=== PATIENT | female | born 1945 | race Caucasian/White ===

== ENCOUNTER 2019-01-28 13:44 | Inpatient (IN) | payer MEDICARE ==
[2019-01-28] MEDS ORDERED: Albuterol/Ipratropium 3.0-0.5 MG/3 ML Neb Soln NEB ONE ×2 (14:00→15:47)
[2019-01-28 15:05] LABS: BLOOD UREA NITROGEN,BUN 16 mg/dL (7.0-18.0); CARBON DIOXIDE,CO2 27.1 mmol/L (21.0-32.0); CHLORIDE,CL 103 mmol/L (98-107); GLUCOSE RANDOM 155 mg/dL (74-106); POTASSIUM,K 4.7 mmol/L (3.5-5.1); SODIUM,NA 137 mmol/L (136-145)
--- NOTE | 2019-01-28 15:14 | CR ---
Chest: AP view of the chest was obtained. Comparison: No prior chest x-rays available. Poor inspiratory effort is noted. Heart size at the upper limits normal. Diffuse increased lung markings are noted. More focal density is seen within the right lung base. Right hemidiaphragm is elevated. Previous right shoulder surgery is noted. Impression: 1. Diffuse increased lung markings. Without previous studies uncertain if this is acute or represents diffuse bronchitis or pulmonary vascular congestion. 2. Elevated right hemidiaphragm. 3. Slight focal density above the right hemidiaphragm may represent small area of pneumonia or atelectasis. Diagnostic code #3 MTDD
[2019-01-28] MEDS ORDERED: Ondansetron 4 MG/2 ML SDV IVPUSH ONE (15:47)
--- NOTE | 2019-01-28 16:11 | EDM.PDOC ---
ED HPI GENERAL MEDICAL PROBLEM - General Chief Complaint: Abdominal Pain Stated Complaint: STOMACH Time Seen by Provider: 01/28/19 13:47 Source of Information: Reports: Patient, EMS History Limitations: Reports: No Limitations - History of Present Illness INITIAL COMMENTS - FREE TEXT/NARRATIVE: Presents via EMS reporting "just not feeling right". She reports feeling short of breath above her baseline, blurry vision, nausea but no vomiting, epigastric pain above her baseline. She has COPD and is followed by Dr. Tony, Pulmonology in [place], on home O2 at 2 L/m. She states that she saw Dr. Tony in December who kept her on her current treatment regimen however, she did mention that the patient should see her primary provider about some swelling in the ankles and excess fluid. She has not had swollen ankles of late. Her blood sugar at home was 85 and 235 by EMS. She has a hiatal hernia and always has some upper abdominal pain but today she has nausea as well. abd pain Pain Score (Numeric/FACES): 7 - Related Data Allergies Allergy/AdvReac Type Severity Reaction Status Date / Time adhesive tape Allergy Rash Verified 01/28/19 13:48 hydrocodone Allergy Vomiting Verified 01/28/19 13:48 oxycodone Allergy Vomiting Verified 01/28/19 13:48 prochlorperazine Allergy Vomiting Verified 01/28/19 13:48 [From Compazine] Home Meds: Home Meds Celecoxib 200 mg PO 01/28/19 [History] Dicyclomine [Bentyl] 10 mg PO 01/28/19 [History] Fluticasone Furoate [Arnuity Ellipta] 2 inh NASBOTH 01/28/19 [History] Insulin Degludec [Tresiba] 200 unit SQ 01/28/19 [History] Insuln Asp Prot/Insulin Aspart [NovoLOG Mix 70-30] 22 units SUBCUT 01/28/19 [ History] Latanoprost/Pf [Latanoprost 0.005% Eye Drop] 1 drop EYEBOTH 01/28/19 [History] Levothyroxine 175 mcg PO 01/28/19 [History] Losartan [Cozaar] 50 mg PO 01/28/19 [History] Meloxicam 15 mg PO 01/28/19 [History] Metoprolol Succinate 100 mg PO 01/28/19 [History] Nortriptyline 10 mg PO 01/28/19 [History] Omeprazole 40 mg PO 01/28/19 [History] amLODIPine [Norvasc] 10 mg PO 01/28/19 [History] atorvaSTATin [Lipitor] 20 mg PO 01/28/19 [History] Past Medical History HEENT History: Reports: Impaired Vision Respiratory History: Reports: Other (See Below) Other Respiratory History: PT reports only having use of half of her diaphragm due to a viral infection Gastrointestinal History: Reports: Irritable Bowel Syndrome Social & Family History - Family History Family Medical History: Noncontributory - Tobacco Use Smoking Status *Q: Never Smoker - Recreational Drug Use Recreational Drug Use: No ED ROS GENERAL - Review of Systems Review Of Systems: ROS reveals no pertinent complaints other than HPI. ED EXAM, GI/ABD - Physical Exam Exam: See Below Exam Limited By: No Limitations General Appearance: Alert, Mild Distress (Due to shortness of breath) Ears: Normal External Exam Nose: Normal Inspection Throat/Mouth: Normal Inspection Head: Atraumatic, Normocephalic Neck: Normal Inspection Respiratory/Chest: No Accessory Muscle Use, Rales (In bases), Other (Speaking in complete sentences) Cardiovascular: Normal Peripheral Pulses, Regular Rate, Rhythm, No Murmur GI/Abdominal Exam: Normal Bowel Sounds, Soft, No Distention, Other (Tenderness in the epigastric area) Back Exam: Normal Inspection Extremities: Normal Inspection, Normal Range of Motion, No Pedal Edema Neurological: Alert, Oriented Psychiatric: Normal Affect, Normal Mood Skin Exam: Warm, Dry, Intact, Normal Color, No Rash Lymphatic: No Adenopathy Course - Vital Signs Last Recorded V/S: Last Vital Signs Temp 36.6 C 01/28/19 15:48 Pulse 58 L 01/28/19 15:48 Resp 32 H 01/28/19 15:48 BP 105/60 01/28/19 15:48 Pulse Ox 87 L 01/28/19 15:48 - Orders/Labs/Meds Orders: Active Orders 24 hr Category Date Time Status Patient Status [ADT] Stat ADT 01/28/19 16:01 Ordered EKG 12 Lead [EKG Documentation Completion] [RC] STAT Care 01/28/19 14:05 Active RT Aerosol Therapy [RC] ASDIRECTED Care 01/28/19 14:01 Active RT Aerosol Therapy [RC] ASDIRECTED Care 01/28/19 15:47 Active Labs: Laboratory Tests 01/28/19 01/28/19 01/28/19 Range/Units 14:27 14:27 14:27 WBC 12.64 H (4.0-11.0) K/uL RBC 4.91 (4.30-5.90) M/uL Hgb 10.7 L (12.0-16.0) g/dL Hct 36.4 (36.0-46.0) % MCV 74.1 L (80.0-98.0) fL MCH 21.8 L (27.0-32.0) pg MCHC 29.4 L (31.0-37.0) g/dL RDW Std Deviation 47.3 (28.0-62.0) fl RDW Coeff of Brisa 18 H (11.0-15.0) % Plt Count 274 (150-400) K/uL MPV 9.60 (7.40-12.00) fL Neut % (Auto) 78.7 (48.0-80.0) % Lymph % (Auto) 12.3 L (16.0-40.0) % [place] % (Auto) 7.7 (0.0-15.0) % Eos % (Auto) 1.1 (0.0-7.0) % Baso % (Auto) 0.2 (0.0-1.5) % Neut # (Auto) 10.0 H (1.4-5.7) K/uL Lymph # (Auto) 1.6 (0.6-2.4) K/uL [place] # (Auto) 1.0 H (0.0-0.8) K/uL Eos # (Auto) 0.1 (0.0-0.7) K/uL Baso # (Auto) 0.0 (0.0-0.1) K/uL Nucleated RBC % 0.0 /100WBC Nucleated RBCs # 0 K/uL Sodium 137 (136-145) mmol/L Potassium 4.7 (3.5-5.1) mmol/L Chloride 103 (98-107) mmol/L Carbon Dioxide 27.1 (21.0-32.0) mmol/L BUN 16 (7.0-18.0) mg/dL Creatinine 1.3 H (0.6-1.0) mg/dL Est Cr Clr Drug Dosing 29.95 mL/min Estimated GFR (MDRD) 40.4 ml/min Glucose 155 H (74-106) mg/dL Calcium 8.8 (8.5-10.1) mg/dL Total Bilirubin 1.8 H (0.2-1.0) mg/dL AST 19 (15-37) IU/L ALT 14 (14-63) IU/L Alkaline Phosphatase 108 (46-116) U/L Troponin I < 0.050 (0.000-0.056) ng/mL B-Natriuretic Peptide 408 H (<100) PG/ML Total Protein 7.1 (6.4-8.2) g/dL Albumin 3.2 L (3.4-5.0) g/dL Globulin 3.9 (2.6-4.0) g/dL Albumin/Globulin Ratio 0.8 L (0.9-1.6) Meds: Medications Discontinued Medications Generic Name Dose Route Start Last Admin Trade Name Freq PRN Reason Stop Dose Admin Albuterol/Ipratropium 3 ml 01/28/19 14:00 01/28/19 14:08 Duoneb 3.0-0.5 Mg/3 Ml NEB 01/28/19 14:01 3 ml ONETIME ONE Administration Albuterol/Ipratropium 3 ml 01/28/19 15:47 01/28/19 15:52 Duoneb 3.0-0.5 Mg/3 Ml NEB 01/28/19 15:48 3 ml ONETIME ONE Administration Ondansetron HCl 4 mg 01/28/19 15:47 01/28/19 15:56 Zofran IVPUSH 01/28/19 15:48 4 mg ONETIME ONE Administration - Re-Assessments/Exams Free Text/Narrative Re-Assessment/Exam: 01/28/19 16:13 Off-and-on nausea in the emergency room treated with Zofran 2 (once by EMS). Complained of shortness of breath with desaturations down into the 70s. Treated with duo nebs and oxygen by nonrebreather mask. Brought saturations up to the upper 80s. Discussion with Dr. Khai Chahal, hospitalist regarding admission. Same will admit patient. Departure - Departure Time of Disposition: 16:15 Disposition: Admitted As Inpatient 68 Condition: Fair Clinical Impression: Hiatal hernia Pneumonia Qualifiers: Pneumonia type: due to unspecified organism Laterality: right Lung location: lower lobe of lung Qualified Code(s): J18.1 - Lobar pneumonia, unspecified organism - Discharge Information Referrals: PCP,Unknown [Primary Care Provider] - - My Orders Last 24 Hours: My Active Orders 01/28/19 14:01 RT Aerosol Therapy [RC] ASDIRECTED 01/28/19 14:05 EKG 12 Lead [EKG Documentation Completion] [RC] STAT 01/28/19 15:47 RT Aerosol Therapy [RC] ASDIRECTED 01/28/19 16:01 Patient Status [ADT] Stat - Assessment/Plan Last 24 Hours: My Active Orders 01/28/19 14:01 RT Aerosol Therapy [RC] ASDIRECTED 01/28/19 14:05 EKG 12 Lead [EKG Documentation Completion] [RC] STAT 01/28/19 15:47 RT Aerosol Therapy [RC] ASDIRECTED 01/28/19 16:01 Patient Status [ADT] Stat
[2019-01-28] MEDS ORDERED: Sodium Chloride 0.9% 1,000 ML IV SCH (16:15)
[2019-01-28] MEDS ORDERED: Albuterol/Ipratropium 3.0-0.5 MG/3 ML Neb Soln NEB PRN (16:48)
[2019-01-28] MEDS ORDERED: Insulin Aspart 100 Units/ML 3 ML Pen SUBCUT SCH (17:00)
[2019-01-28] MEDS ORDERED: Azithromycin 500 MG in Sodium Chloride 0.9% 250 ML IV SCH (17:00)
[2019-01-28] MEDS ORDERED: cefTRIAXone 1 GM in Sodium Chloride 0.9% 50 ML IV SCH (17:00)
[2019-01-28] MEDS ORDERED: methylPREDNISolone Sodium Succinate 125 MG/2 ML SDV IVPUSH SCH (17:00)
--- NOTE | 2019-01-28 17:02 | PCM.HP.2 ---
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 She reports two day history of fevers, and myalgias. She reports increasing shortness of breath, wheezing and productive cough. She was noted to be satting in 70s on presentation. She was given nebulizers and 14 L of O2 via face mask in the ED with some improvement in her dyspnea. She is now satting at 88-90. CXR reported diffuse increased lung markings. abd pain Pain Score (Numeric/FACES): 7 - Related Data Allergies/Adverse Reactions: Allergies Allergy/AdvReac Type Severity Reaction Status Date / Time adhesive tape Allergy Rash Verified 01/28/19 13:48 hydrocodone Allergy Vomiting Verified 01/28/19 13:48 oxycodone Allergy Vomiting Verified 01/28/19 13:48 prochlorperazine Allergy Vomiting Verified 01/28/19 13:48 [From Compazine] Home Medications: Home Meds Celecoxib 200 mg PO 01/28/19 [History] Dicyclomine [Bentyl] 10 mg PO 01/28/19 [History] Fluticasone Furoate [Arnuity Ellipta] 2 inh NASBOTH 01/28/19 [History] Insulin Degludec [Tresiba] 200 unit SQ 01/28/19 [History] Insuln Asp Prot/Insulin Aspart [NovoLOG Mix 70-30] 22 units SUBCUT 01/28/19 [ History] Latanoprost/Pf [Latanoprost 0.005% Eye Drop] 1 drop EYEBOTH 01/28/19 [History] Levothyroxine 175 mcg PO 01/28/19 [History] Losartan [Cozaar] 50 mg PO 01/28/19 [History] Meloxicam 15 mg PO 01/28/19 [History] Metoprolol Succinate 100 mg PO 01/28/19 [History] Nortriptyline 10 mg PO 01/28/19 [History] Omeprazole 40 mg PO 01/28/19 [History] amLODIPine [Norvasc] 10 mg PO 01/28/19 [History] atorvaSTATin [Lipitor] 20 mg PO 01/28/19 [History] Past Medical History HEENT History: Reports: Impaired Vision Respiratory History: Reports: Other (See Below) Other Respiratory History: PT reports only having use of half of her diaphragm due to a viral infection Gastrointestinal History: Reports: Irritable Bowel Syndrome Social & Family History - Family History Family Medical History: Noncontributory - Tobacco Use Smoking Status *Q: Never Smoker - Recreational Drug Use Recreational Drug Use: No H&P Review of Systems - Review of Systems: Review Of Systems: ROS reveals no pertinent complaints other than HPI. Exam - Exam Exam: See Below - Vital Signs Vital Signs: Last Vital Signs Temp 36.6 C 01/28/19 15:48 Pulse 58 L 01/28/19 15:48 Resp 32 H 01/28/19 15:48 BP 105/60 01/28/19 15:48 Pulse Ox 87 L 01/28/19 15:48 Weight: 86.183 kg - Exam General: Alert, Oriented HEENT: Posterior Pharynx Clear Neck: No: JVD Lungs: Rhonchi, Wheezing Cardiovascular: Regular Rate, Regular Rhythm GI/Abdominal Exam: Normal Bowel Sounds, Soft, Non-Tender, No Distention Extremities: Non-Tender, No Pedal Edema Skin: Warm, Dry, Intact - Patient Data Lab Results Last 24 hrs: Laboratory Results - last 24 hr 01/28/19 01/28/19 01/28/19 Range/Units 14:27 14:27 14:27 WBC 12.64 H (4.0-11.0) K/uL RBC 4.91 (4.30-5.90) M/uL Hgb 10.7 L (12.0-16.0) g/dL Hct 36.4 (36.0-46.0) % MCV 74.1 L (80.0-98.0) fL MCH 21.8 L (27.0-32.0) pg MCHC 29.4 L (31.0-37.0) g/dL RDW Std Deviation 47.3 (28.0-62.0) fl RDW Coeff of Brisa 18 H (11.0-15.0) % Plt Count 274 (150-400) K/uL MPV 9.60 (7.40-12.00) fL Neut % (Auto) 78.7 (48.0-80.0) % Lymph % (Auto) 12.3 L (16.0-40.0) % [place] % (Auto) 7.7 (0.0-15.0) % Eos % (Auto) 1.1 (0.0-7.0) % Baso % (Auto) 0.2 (0.0-1.5) % Neut # (Auto) 10.0 H (1.4-5.7) K/uL Lymph # (Auto) 1.6 (0.6-2.4) K/uL [place] # (Auto) 1.0 H (0.0-0.8) K/uL Eos # (Auto) 0.1 (0.0-0.7) K/uL Baso # (Auto) 0.0 (0.0-0.1) K/uL Nucleated RBC % 0.0 /100WBC Nucleated RBCs # 0 K/uL Sodium 137 (136-145) mmol/L Potassium 4.7 (3.5-5.1) mmol/L Chloride 103 (98-107) mmol/L Carbon Dioxide 27.1 (21.0-32.0) mmol/L BUN 16 (7.0-18.0) mg/dL Creatinine 1.3 H (0.6-1.0) mg/dL Est Cr Clr Drug Dosing 29.95 mL/min Estimated GFR (MDRD) 40.4 ml/min Glucose 155 H (74-106) mg/dL Calcium 8.8 (8.5-10.1) mg/dL Total Bilirubin 1.8 H (0.2-1.0) mg/dL AST 19 (15-37) IU/L ALT 14 (14-63) IU/L Alkaline Phosphatase 108 (46-116) U/L Troponin I < 0.050 (0.000-0.056) ng/mL B-Natriuretic Peptide 408 H (<100) PG/ML Total Protein 7.1 (6.4-8.2) g/dL Albumin 3.2 L (3.4-5.0) g/dL Globulin 3.9 (2.6-4.0) g/dL Albumin/Globulin Ratio 0.8 L (0.9-1.6) Result Diagrams: 01/28/19 14:27 01/28/19 14:27 Problem List Initiated/Reviewed/Updated: Yes Orders Last 24hrs: Active Orders 24 hr Category Date Time Status Patient Status [ADT] Stat ADT 01/28/19 16:01 Active EKG 12 Lead [EKG Documentation Completion] [RC] STAT Care 01/28/19 14:05 Active RT Aerosol Therapy [RC] ASDIRECTED Care 01/28/19 14:01 Active RT Aerosol Therapy [RC] ASDIRECTED Care 01/28/19 15:47 Active RT Aerosol Therapy [RC] ASDIRECTED Care 01/28/19 16:49 Ordered CULTURE BLOOD [BC] Stat Lab 01/28/19 16:51 Ordered CULTURE BLOOD [BC] Stat Lab 01/28/19 16:51 Ordered Albuterol/Ipratropium [DuoNeb 3.0-0.5 MG/3 ML] Med 01/28/19 16:48 Ordered 3 ml NEB Q2H PRN Albuterol/Ipratropium [DuoNeb 3.0-0.5 MG/3 ML] Med 01/28/19 18:00 Ordered 3 ml NEB Q6HRRT Azithromycin [Zithromax] 500 mg Med 01/28/19 17:00 Ordered Sodium Chloride 0.9% [Normal Saline (AdvBag)] 250 ml IV Q24H Insulin Aspart [NovoLOG] Med 01/28/19 17:00 Ordered See Protocol SUBCUT TIDAC Insulin Glarg,Human.Rec.Analog [LantUS Solostar] Med 01/28/19 21:00 Ordered 80 units SUBCUT BEDTIME Levothyroxine Med 01/28/19 17:00 Unverified DOSE UNIT RTE FREQ Losartan [Cozaar] Med 01/28/19 17:00 Unverified DOSE UNIT RTE FREQ Metoprolol Succinate [Toprol XL] Med 01/28/19 17:00 Unverified DOSE UNIT RTE FREQ Nortriptyline Med 01/28/19 17:00 Unverified DOSE UNIT RTE FREQ Omeprazole [Omeprazole] Med 01/28/19 17:00 Unverified DOSE UNIT RTE FREQ amLODIPine [Norvasc] Med 01/28/19 17:00 Unverified DOSE UNIT RTE FREQ cefTRIAXone [Rocephin] 1 gm Med 01/28/19 17:00 Ordered Sodium Chloride 0.9% [Normal Saline] 50 ml IV Q24H methylPREDNISolone Sod Succ [Solu-MEDROL] Med 01/28/19 17:00 Ordered 125 mg IVPUSH DAILY Blood Culture x2 Reflex Set [OM.PC] Stat Oth 01/28/19 16:51 Ordered Medication Orders Albuterol/Ipratropium (Duoneb 3.0-0.5 Mg/3 Ml) 3 ml NEB Q2H PRN PRN Reason: Wheezing Albuterol/Ipratropium (Duoneb 3.0-0.5 Mg/3 Ml) 3 ml NEB Q6HRRT CASSIDY Azithromycin 500 mg/ Sodium (Chloride) 250 mls @ 250 mls/hr IV Q24H CASSIDY Ceftriaxone Sodium 1 gm/ (Sodium Chloride) 50 mls @ 100 mls/hr IV Q24H CASSIDY Insulin Aspart (Novolog) 0 unit SUBCUT TIDAC CASSIDY; Protocol Insulin Glargine (Lantus Solostar) 80 units SUBCUT BEDTIME CASSIDY Methylprednisolone Sodium Succinate (Solu-Medrol) 125 mg IVPUSH DAILY CASSIDY Assessment/Plan Comment:: 73 yo female admitted for acute hypoxic respiratory failure from pneumonia vs acute bronchitis. We will tread with Rocephin, azithromycin, duonebs and solumedrol. We will resume her long acting insulin for which she takes 80 units at night with sliding scale insulin.
[2019-01-28] MEDS ORDERED: Ondansetron 4 MG/2 ML SDV IVPUSH PRN (17:23)
[2019-01-28] MEDS ORDERED: Acetaminophen 325 MG Tab PO PRN (17:23)
[2019-01-28] MEDS ORDERED: Heparin Sodium 5,000 Units/ML Vial SUBCUT SCH (17:30)
[2019-01-28] MEDS ORDERED: Albuterol/Ipratropium 3.0-0.5 MG/3 ML Neb Soln NEB SCH (18:00)
--- NOTE | 2019-01-28 19:45 | PN ---
THC Physician - Brief Progress [id number]/15/2019 19:31[facility] Munir Stack, CELINE - ALEXANDERN (HUANN) - MWN Efraín MELVIN of Service 01/28/2019 19:31HPI/Events of Note eICU Admission [id number] admitted for acute on chronic hypoxemic respiratory failure attributed to pneumonia. History obtained primarily from review of EMR.PMH: AISHA, DM, HTN, paralyzed R Diaphragm, o n 2LNC at baseline HPI: Patient had presented with fevers/chills/wheezing and cough. On simple facema sk saturating in upper 80s. Work up revealed leukocytosis, IDA, CXR reveals diffuse lung markings. Oleg osman was admitted to the ICU for further management.Camera exam: Laying in bed, on face mask, satura tions with unreliable waveforms. Vitals monitor reviewed, bradycardic, although unclear if rhythm cap tured by telemetryVitals: reviewedLabs: reviewedRadiology: reviewedMeds: reviewedeICU Impression and Recommendations:Sepsis, suspect secondary to pneumoniaIf not already done, recommend lactate, urinaly sisIf elevated, trend lactate until <2Antibiotics per primary service, agree with CAP coverageInfluen za testingBradycardia per telemetryEKG statShould EKG confirm bradycardia:- keep atropine at bedside, administer should patient become unstable- Recommend cardiology consult for comment- If not already ordered, recommend TSH, FT4, TTE, troponin, BNP, Magnesium, Phosphorus, ionized calcium- Continuous t elemetry monitoringShould patient develop symptomatic/unstable bradycardia:- Administer atropine 0.5m g IV push every 3-5 min up to 3mg total- Please place pacer pads on patient for possible need of pierson scutaneous pacing- Recommend cardiology stat evaluation for transvenous pacemaker placement- Initiati on of epinephrine or dopamine dripAcute kidney injury, etiology suspected to be:Strict I/OTrend creat inineAvoid nephrotoxic agentsAcute Hypoxemic Respiratory Failure, secondary to pneumoniaWould suggest a very low threshold for intubation given pre-existing oxygen requirement prior to admission. Can co nsider BPAP therapy, however this must be taken in conjunction with patient's mental status, work of breathing, and sputum production. If oxygen status worsens or saturations are unable to be maintained >92% with non-invasive measures, recommend immediate intubation.ABG statShould patient be intubated overnight, Consider pursuit of a lung protective ventilation strategy. [place] body weight noted to be 52kg, as such I recommend an initial tidal volume of 325 mL if pursuing a volume control ventilation approach. Recommend addressing minute ventilation requirements by increasing respiratory rate.ABG and CXR following intubation.Titration of FiO2 to maintain O2 saturation >92%Recommend implementation of ventilator quality bundle, with daily sedation vacation, spontaneous breathing trials, DVT and GI pr ophylaxis, and maintaining head of bed at 30 degreesHypothyroidismIf not already done, recommend TSH and ER6Pwysorpy levothyroxineDiabetes MellitusHyperglycemia- Glycemic management per primary service, we are available to assist if desired- Recommend targeted glucose goal of <180, and discontinuation of oral anti-hyperglycemics, with initiation of insulin- consider A1c if not obtained in past 6 month sDVT and GI prophylaxis as appropriate.We are available to assist in further clarification, or implem entation of any of the above recommendations if desired by primary service.Thank you for allowing us to participate in the care of this patient.The above note transcribed via dictation software. Please excuse any errors.Interventions Major-Respiratory failure - evaluation and management, Sepsis - evalu ation and management
[2019-01-28] MEDS ORDERED: Sodium Chloride 0.9% 500 ML IV ONE (20:45)
--- NOTE | 2019-01-28 20:54 | PCM.DCSUM1 ---
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 She reports two day history of fevers, and myalgias. She reports increasing shortness of breath, wheezing and productive cough. She was noted to be satting in 70s on presentation. She was given nebulizers and 14 L of O2 via face mask in the ED with some improvement in her dyspnea. Chest x-ray reported diffuse increased lung markings. She was given Rocephin and Azithromycin for community acquired pneumonia. ABG had a pH of 7.171, pCO2 of 72, and pO2 of 56. The case was discussed with eICU physician Dr. Hickey. The decision was made to intubate due to the degree of her worsening hypoxia. Patient and family agreed to intubation. Anesthesia was called and intubated patient. Due to her need for higher level of care I called [facility] and Dr. Lopez has accepted the patient. Air transportation was arranged. - Discharge Plan Home Medications: Home Meds Celecoxib 200 mg PO 01/28/19 [History] Dicyclomine [Bentyl] 10 mg PO 01/28/19 [History] Fluticasone Furoate [Arnuity Ellipta] 2 inh NASBOTH 01/28/19 [History] Insulin Degludec [Tresiba] 200 unit SQ 01/28/19 [History] Insuln Asp Prot/Insulin Aspart [NovoLOG Mix 70-30] 22 units SUBCUT 01/28/19 [ History] Latanoprost/Pf [Latanoprost 0.005% Eye Drop] 1 drop EYEBOTH 01/28/19 [History] Levothyroxine 175 mcg PO 01/28/19 [History] Losartan [Cozaar] 50 mg PO 01/28/19 [History] Meloxicam 15 mg PO 01/28/19 [History] Metoprolol Succinate 100 mg PO 01/28/19 [History] Nortriptyline 10 mg PO 01/28/19 [History] Omeprazole 40 mg PO 01/28/19 [History] amLODIPine [Norvasc] 10 mg PO 01/28/19 [History] atorvaSTATin [Lipitor] 20 mg PO 01/28/19 [History] Forms: ED Department Discharge Referrals: PCP,Unknown [Primary Care Provider] - - Patient Data Vitals - Most Recent: Last Vital Signs Temp 36.6 C 01/28/19 15:48 Pulse 58 L 01/28/19 15:48 Resp 32 H 01/28/19 15:48 BP 105/60 01/28/19 15:48 Pulse Ox 87 L 01/28/19 15:48 Weight - Most Recent: 86.183 kg Lab Results - Last 24 hrs: Laboratory Results - last 24 hr 01/28/19 01/28/19 01/28/19 Range/Units 14:27 14:27 14:27 WBC 12.64 H (4.0-11.0) K/uL RBC 4.91 (4.30-5.90) M/uL Hgb 10.7 L (12.0-16.0) g/dL Hct 36.4 (36.0-46.0) % MCV 74.1 L (80.0-98.0) fL MCH 21.8 L (27.0-32.0) pg MCHC 29.4 L (31.0-37.0) g/dL RDW Std Deviation 47.3 (28.0-62.0) fl RDW Coeff of Brisa 18 H (11.0-15.0) % Plt Count 274 (150-400) K/uL MPV 9.60 (7.40-12.00) fL Neut % (Auto) 78.7 (48.0-80.0) % Lymph % (Auto) 12.3 L (16.0-40.0) % Bent % (Auto) 7.7 (0.0-15.0) % Eos % (Auto) 1.1 (0.0-7.0) % Baso % (Auto) 0.2 (0.0-1.5) % Neut # (Auto) 10.0 H (1.4-5.7) K/uL Lymph # (Auto) 1.6 (0.6-2.4) K/uL Bent # (Auto) 1.0 H (0.0-0.8) K/uL Eos # (Auto) 0.1 (0.0-0.7) K/uL Baso # (Auto) 0.0 (0.0-0.1) K/uL Nucleated RBC % 0.0 /100WBC Nucleated RBCs # 0 K/uL ABG pH (7.35-7.45) ABG pCO2 (35-45) mmHG ABG pO2 (75-100) mmHG ABG HCO3 (22-26) mEq/L ABG Total CO2 ABG Base Excess (-2.0-2.0) Lactate (0.20-2.00) mmol/L Sodium 137 (136-145) mmol/L Potassium 4.7 (3.5-5.1) mmol/L Chloride 103 (98-107) mmol/L Carbon Dioxide 27.1 (21.0-32.0) mmol/L BUN 16 (7.0-18.0) mg/dL Creatinine 1.3 H (0.6-1.0) mg/dL Est Cr Clr Drug Dosing 29.95 mL/min Estimated GFR (MDRD) 40.4 ml/min Glucose 155 H (74-106) mg/dL Calcium 8.8 (8.5-10.1) mg/dL Total Bilirubin 1.8 H (0.2-1.0) mg/dL AST 19 (15-37) IU/L ALT 14 (14-63) IU/L Alkaline Phosphatase 108 (46-116) U/L Troponin I < 0.050 (0.000-0.056) ng/mL B-Natriuretic Peptide 408 H (<100) PG/ML Total Protein 7.1 (6.4-8.2) g/dL Albumin 3.2 L (3.4-5.0) g/dL Globulin 3.9 (2.6-4.0) g/dL Albumin/Globulin Ratio 0.8 L (0.9-1.6) 01/28/19 01/28/19 Range/Units 19:30 19:30 WBC (4.0-11.0) K/uL RBC (4.30-5.90) M/uL Hgb (12.0-16.0) g/dL Hct (36.0-46.0) % MCV (80.0-98.0) fL MCH (27.0-32.0) pg MCHC (31.0-37.0) g/dL RDW Std Deviation (28.0-62.0) fl RDW Coeff of Brisa (11.0-15.0) % Plt Count (150-400) K/uL MPV (7.40-12.00) fL Neut % (Auto) (48.0-80.0) % Lymph % (Auto) (16.0-40.0) % Bent % (Auto) (0.0-15.0) % Eos % (Auto) (0.0-7.0) % Baso % (Auto) (0.0-1.5) % Neut # (Auto) (1.4-5.7) K/uL Lymph # (Auto) (0.6-2.4) K/uL Bent # (Auto) (0.0-0.8) K/uL Eos # (Auto) (0.0-0.7) K/uL Baso # (Auto) (0.0-0.1) K/uL Nucleated RBC % /100WBC Nucleated RBCs # K/uL ABG pH 7.171 L* (7.35-7.45) ABG pCO2 72 H (35-45) mmHG ABG pO2 56 L (75-100) mmHG ABG HCO3 26 (22-26) mEq/L ABG Total CO2 25.7 ABG Base Excess -3.2 L (-2.0-2.0) Lactate 0.9 (0.20-2.00) mmol/L Sodium (136-145) mmol/L Potassium (3.5-5.1) mmol/L Chloride (98-107) mmol/L Carbon Dioxide (21.0-32.0) mmol/L BUN (7.0-18.0) mg/dL Creatinine (0.6-1.0) mg/dL Est Cr Clr Drug Dosing mL/min Estimated GFR (MDRD) ml/min Glucose (74-106) mg/dL Calcium (8.5-10.1) mg/dL Total Bilirubin (0.2-1.0) mg/dL AST (15-37) IU/L ALT (14-63) IU/L Alkaline Phosphatase (46-116) U/L Troponin I (0.000-0.056) ng/mL B-Natriuretic Peptide (<100) PG/ML Total Protein (6.4-8.2) g/dL Albumin (3.4-5.0) g/dL Globulin (2.6-4.0) g/dL Albumin/Globulin Ratio (0.9-1.6) Med Orders - Current: Current Medications Acetaminophen (Tylenol) 650 mg PO Q4H PRN PRN Reason: Pain (Mild 1-3)/fever Albuterol/Ipratropium (Duoneb 3.0-0.5 Mg/3 Ml) 3 ml NEB Q2H PRN PRN Reason: Wheezing Albuterol/Ipratropium (Duoneb 3.0-0.5 Mg/3 Ml) 3 ml NEB Q6HRRT [facility] Heparin Sodium (Porcine) (Heparin Sodium) 5,000 units SUBCUT Q8H [facility] Last Admin: 01/28/19 18:44 Dose: 5,000 units Azithromycin 500 mg/ Sodium (Chloride) 250 mls @ 250 mls/hr IV Q24H [facility] Last Admin: 01/28/19 18:38 Dose: 250 mls/hr Ceftriaxone Sodium 1 gm/ (Sodium Chloride) 50 mls @ 100 mls/hr IV Q24H [facility] Last Admin: 01/28/19 17:54 Dose: 100 mls/hr Propofol (Diprivan 100 Ml) 100 mls @ 7.756 mls/hr IV TITRATE [facility]; Protocol Sodium Chloride (Normal Saline) 500 mls @ 555 mls/hr IV ONETIME ONE Stop: 01/28/19 21:39 Insulin Aspart (Novolog) 0 unit SUBCUT TIDAC [facility]; Protocol Last Admin: 01/28/19 19:27 Dose: Not Given Insulin Glargine (Lantus Solostar) 80 units SUBCUT BEDTIME [facility] Methylprednisolone Sodium Succinate (Solu-Medrol) 125 mg IVPUSH DAILY [facility] Last Admin: 01/28/19 18:01 Dose: 125 mg Ondansetron HCl (Zofran) 4 mg IVPUSH Q4H PRN PRN Reason: Nausea Discontinued Medications Albuterol/Ipratropium (Duoneb 3.0-0.5 Mg/3 Ml) 3 ml NEB ONETIME ONE Stop: 01/28/19 14:01 Last Admin: 01/28/19 14:08 Dose: 3 ml Albuterol/Ipratropium (Duoneb 3.0-0.5 Mg/3 Ml) 3 ml NEB ONETIME ONE Stop: 01/28/19 15:48 Last Admin: 01/28/19 15:52 Dose: 3 ml Sodium Chloride (Normal Saline) 1,000 mls @ 200 mls/hr IV ASDIRECTED [facility] Last Admin: 01/28/19 16:12 Dose: 200 mls/hr Propofol (Diprivan 100 Ml) Confirm Administered Dose 100 mls @ as directed .ROUTE .STK-MED ONE Stop: 01/28/19 20:16 Ondansetron HCl (Zofran) 4 mg IVPUSH ONETIME ONE Stop: 01/28/19 15:48 Last Admin: 01/28/19 15:56 Dose: 4 mg
[2019-01-28] MEDS ORDERED: Insulin Glargine,Human Rec. Analog 100 Units/ML 3 ML Pen SUBCUT SCH (21:00)
--- NOTE | 2019-01-28 21:09 | CR ---
INDICATION: Intubation TECHNIQUE: Chest 1 views COMPARISON: Chest x-ray 01/28/2019 at 1443 FINDINGS: Cardiovascular and mediastinum: Cardiomegaly with pulmonary vascular distention. Endotracheal tube at the distal trachea, 1.8 centimeters above the romie. Lungs and pleural spaces: Pulmonary edema with trace bilateral pleural effusions. Bones and soft tissues: Attachment hook right proximal humerus. IMPRESSION: 1. New endotracheal tube with tip at the distal trachea, 1.8 centimeters above the romie. 2. Trace bilateral pleural effusions with pulmonary edema pattern, worsened compared to the prior exam. Dictated by Kofi Kate MD @ Jan 28 2019 9:06PM Signed by Dr. Kofi Kate @ Jan 28 2019 9:07PM
--- NOTE | 2019-01-28 21:45 | PN ---
THC Physician - Brief Progress [id number]/15/2019 20:49[facility] Munir izaguirre, [place] - [place] ([place]) - [facility] 01/28/2019 20:49HPI/Events of Note Overnight events.Patient intubated. Vent settings ordered and sedation is in place with Propofol .A/P:Acute respiratory failure due to pneumonia.ABG in 30-60 min.Frankie adjust vent settings based on AB G and IBW of only 48 kg (based on her height).Increasing PEEP to 10 cm H2O given sat 90-91% on 100% F iO2.Based on this, patient has ARDS and will need protective lung ventilation of 4-6 mL/kg IBW - will decrease VT gradually and increase RR to maintain minute ventilation).F/up CxR pending.Interventions Major-Respiratory failure - evaluation and management
[2019-01-28] MEDS ORDERED: Etomidate 2 MG/ML 20 ML SDV IVPUSH ONE (21:52)
[2019-01-28] MEDS ORDERED: Rocuronium 100 MG/10 ML MDV IV ONE (21:52)
[2019-01-28] MEDS ORDERED: Succinylcholine 200 MG/10 ML MDV IV ONE (21:52)
--- NOTE | 2019-01-28 22:00 | PCM.SN ---
- Free Text/Narrative Note: Anesthesia 01/28/2019 Called in to intubate patient. See ICU nurses notes for vitals and details. Arrived in ICU patient in respiratory distress O2 sats at 77 percent patient intubated. Suction, ambu equipment set up. Ambu pre o2 at 15 liters/min. Increased patient's O2 sats to 90 percent. Patient given Etomidate 20 mg and Stefan 50 mg iv Smooth intubation. Easy intubation. Cords clear, bbs, positve end tidal CO2 by C02 detector and monitor. Patient put on vent by Respiratory therapist. See respiratory notes. #20 ga iv started in left FA. # 14 estonian NGT in left nare. ABG taken from right radial. Flight team in room to take patient. See ICU notes and Respiatory notes for vitals and deatils. Thank You, Nigel Holt [employer]
== END 2019-01-28 21:53 | DRG 193 ==
LOC: MW.ED 13:44 → MW.MS 16:00 → MW.ICU 16:45
PROVIDERS: ADMIT Internal Medicine; ATTEND Internal Medicine
PROC: 0BH17EZ Insertion of Endotracheal Airway into Trachea, Via Natural or Artificial Opening (ICD-10-PCS; principal; 2019-01-28)
DX: J18.1 Lobar pneumonia, unspecified organism (principal); R10.13 Epigastric pain; R06.02 Shortness of breath; R11.0 Nausea; J44.9 Chronic obstructive pulmonary disease, unspecified; K44.9 Diaphragmatic hernia without obstruction or gangrene; Z99.81 Dependence on supplemental oxygen; J96.01 Acute respiratory failure with hypoxia; N17.9 Acute kidney failure, unspecified; J98.6 Disorders of diaphragm; E03.9 Hypothyroidism, unspecified; E11.65 Type 2 diabetes mellitus with hyperglycemia; G47.33 Obstructive sleep apnea (adult) (pediatric); Z88.5 Allergy status to narcotic agent; Z91.09 Other allergy status, other than to drugs and biological substances; Z88.8 Allergy status to other drugs, medicaments and biological substances; Z79.4 Long term (current) use of insulin; Z79.890 Hormone replacement therapy; Z79.899 Other long term (current) drug therapy
CPT/HCPCS: 36415; 71045; 80053; 83880; 84484; 85025; 94640; 96374; 99285; J2405; 36600; 51702; 82803; 82962; 83605; 87040; 93005; 96361; J0330; J0456; J0696; J1644; J2704; J2930; J3490; J7040; J7050; J7620-GY